=== PATIENT | male | born 1990 | race African-American/Black ===

== ENCOUNTER 2020-05-10 16:47 | Emergency (ER) | payer SELFPAY ==
[~2020-05-10] VITALS: Ht 188 cm; Wt 106.8 kg
[~2020-05-10 16:47] MED LIST: NORCO 325 MG-51 TAB PO
[2020-05-10 16:56] VITALS: BP 126/82; TEMP 98.6
[2020-05-10 17:08] LABS: COLLECTION METHOD CLEAN CATCH
[2020-05-10 17:17] LABS: PH 5 (5-8); URINE APPEARANCE Turbid; URINE BACTERIA None Seen /hpf; URINE BILIRUBIN Negative (NEGATIVE); URINE BLOOD 2+ (NEGATIVE); URINE COLOR Yellow; URINE GLUCOSE Negative (NEGATIVE); URINE KETONE Negative (NEGATIVE); URINE LEUKOCYTE ESTERASE 3+ (NEGATIVE); URINE NITRATE Negative (NEGATIVE); URINE PROTEIN(semi-quant) 2+ (NEGATIVE); URINE RBC >50 /hpf
[2020-05-10 18:04] LABS: BASO % 0.4 % (0.0-2.0); EOS # 0.4 (0.0-0.7); EOS % 4.8 % (0-4.0); GRAN # 6.1 (1.4-6.5); GRAN % 66.7 % (42.2-75.2); HEMATOCRIT 43.9 % (42.0-52.0); HEMOGLOBIN 14.2 g/dl (13.5-18.0); LYMPH # 1.8 (1.2-3.4); LYMPH % 19.9 % (20.0-51.0); MEAN CELL VOLUME 84 fl (80.0-100.0); MEAN CORPUSCULAR HEMOGLOBIN 27 pg (27.0-31.0); MEAN CORPUSCULAR HGB CONC 32 g/dl (33.0-37.0); MEAN PLATELET VOLUME 10.6 fl (7.4-10.4); MONO # 0.7 (0.1-0.6); MONO % 7.9 % (1.7-9.3); PLATELET COUNT 239 K/mm3 (130-400); REDCELL DISTRIBUTION WIDTH-CV 11.9 % (11.5-14.5)
[2020-05-10 18:42] LABS: ALBUMIN 4.5 gm/dL (3.5-5.0); BILIRUBIN,TOTAL 0.5 mg/dL (0.0-1.0); C-REACTIVE PROTEIN 1.4 mg/dL (0.0-0.9); CALCIUM 9.1 mg/dL (8.4-10.2); CREATININE, serum 1.42 (0.66-1.25); POTASSIUM 4.1 mmol/L (3.4-5.0)
[2020-05-10] MEDS ORDERED: CEFTIN500 MG PO (20:01)
[2020-05-10 20:17] VITALS: PULSE 82
== END 2020-05-10 20:17 | disposition home or self-care (01) ==
LOC: COL.ER 16:47
PROVIDERS: Emergency Medicine
DX: N39.0 Urinary tract infection, site not specified (principal); N28.9 Disorder of kidney and ureter, unspecified; N34.2 Other urethritis; F17.290 Nicotine dependence, other tobacco product, uncomplicated
CPT/HCPCS: J0696; J1885; J7030

== ENCOUNTER 2020-07-22 14:40 | Emergency (ER) | payer OTHER ==
[~2020-07-22] VITALS: Ht 444.5 cm; Wt 109.1 kg
[~2020-07-22 14:40] MED LIST changes: +CEFTIN500 MG PO
[2020-07-22 14:45] VITALS: TEMP 98.6
[2020-07-22] MEDS ORDERED: VALTREX1 GM PO (14:56)
[2020-07-22 15:07] VITALS: BP 121/81; PULSE 99
== END 2020-07-22 15:15 | disposition home or self-care (01) ==
LOC: COL.ER 14:40
DX: B00.1 Herpesviral vesicular dermatitis (principal); F17.290 Nicotine dependence, other tobacco product, uncomplicated

== ENCOUNTER 2021-12-16 16:48 | Emergency (ER) | payer BC ==
[~2021-12-16] VITALS: Ht 190.5 cm; Wt 115.9 kg
[~2021-12-16 16:48] MED LIST changes: +VALTREX1 GM PO
[2021-12-16 17:04] VITALS: TEMP 98.2
[2021-12-16] MEDS ORDERED: ZYRTEC 10MG10 MG PO (17:10)
[2021-12-16 18:33] LABS: BASO % 0.4 % (0.0-2.0); EOS # 0.1 K/mm3 (0.0-0.7); EOS % 1.5 % (0.0-4.0); GRAN # 4.9 K/mm3 (1.4-6.5); GRAN % 71.3 % (42.2-75.2); HEMATOCRIT 43.3 % (42.0-52.0); HEMOGLOBIN 14.1 g/dl (13.5-18.0); LYMPH # 1.4 K/mm3 (1.2-3.4); LYMPH % 20.3 % (20.0-51.0); MEAN CELL VOLUME 83 fl (80.0-100.0); MEAN CORPUSCULAR HEMOGLOBIN 27 pg (27-31); MEAN CORPUSCULAR HGB CONC 33 g/dl (33.0-37.0); MEAN PLATELET VOLUME 10.6 fl (7.4-10.4); MONO # 0.4 K/mm3 (0.1-0.6); MONO % 6.2 % (1.7-9.3); PLATELET COUNT 214 K/mm3 (130-400); RED BLOOD COUNT 5.23 M/mm3 (4.20-5.60); REDCELL DISTRIBUTION WIDTH-CV 13.1 % (11.5-14.5)
[2021-12-16 18:54] LABS: ALBUMIN 4.3 gm/dL (3.5-5.0); BILIRUBIN,TOTAL 0.4 mg/dL (0.2-1.2); CALCIUM 9.2 mg/dL (8.4-10.2); CREATININE, serum 1.07 mg/dL (0.72-1.25); POTASSIUM 4.2 mmol/L (3.5-4.5); TOTAL PROTEIN 7.7 gm/dL (6.2-8.1)
[2021-12-16 18:59] LABS: TROPONIN-I 0.013 ng/mL (0.00-0.033)
[2021-12-16 19:26] VITALS: BP 124/81; PULSE 75
== END 2021-12-16 19:27 | disposition home or self-care (01) ==
LOC: COL.ER 16:48
PROVIDERS: Nurse Practitioner Primary Care
DX: R07.89 Other chest pain (principal); R03.0 Elevated blood-pressure reading, without diagnosis of hypertension; F17.290 Nicotine dependence, other tobacco product, uncomplicated